=== PATIENT | female | born 1995 | race Caucasian/White ===

== ENCOUNTER 2016-10-06 15:35 | Emergency (ER) | payer BC ==
--- NOTE | 2016-10-06 17:23 | EDM.PDOCBH ---
ED HPI GENERAL MEDICAL PROBLEM - General Chief Complaint: Behavioral/Psych Stated Complaint: EVAL Time Seen by Provider: 10/06/16 17:16 Source of Information: Reports: Patient, Family (MOm) History Limitations: Reports: No Limitations - History of Present Illness INITIAL COMMENTS - FREE TEXT/NARRATIVE: Pt presents to ER with her mother after expressing suicidal ideation on Thursday night after going to a green party and drinking. Stopped her Lexapro about 3 weeks ago as she didn't think she should drink with it and the green party season is back in full swing on campus. She had been started on it about 10 months ago after a breakup with her boyfriend. Had been going to counseling weekly as well. Stopped counseling about 5 months ago. She admits that her relationship with her boyfriend is a trigger as they have been off again, on again for about 2 years. Mom confirms this. She admits to having behavior problems when drinking alcohol. Denies drug use. Feels like she has struggled with depression since about 14. Admits to cutting self x 1 at age 14. Her plan on Thursday was to slit her wrists and take some pills "to just go to sleep". She is quite emotional and tearful during my interview but able to communicate openly. Has concerns about her job and starting college tomorrow. "I don't feel like I could focus". Saw a counselor today after her mom drove to get her from college at 3am. Remained despondent today so Mom brought her in for an evaluation. She still voices thoughts of suicide today. Same plan. Onset Date: 10/01/16 Duration: Getting Worse Improves with: Reports: None Worsens with: Reports: None Context: Reports: Other Associated Symptoms: Reports: No Other Symptoms - Related Data Allergies Allergy/AdvReac Type Severity Reaction Status Date / Time No Known Allergies Allergy Verified 12/08/15 18:39 Home Meds: Home Meds NK [No Known Home Meds] 10/06/16 [History] Past Medical History Psychiatric History: Reports: Anxiety, Depression - Past Surgical History HEENT Surgical History: Reports: Oral Surgery Social & Family History - Tobacco Use Smoking Status *Q: Unknown Ever Smoked - Alcohol Use Days Per Week of Alcohol Use: 2 Number of Drinks Per Day: 2 Total Drinks Per Week: 4 - Recreational Drug Use Recreational Drug Use: No ED ROS GENERAL - Review of Systems Review Of Systems: See Below Constitutional: Reports: No Symptoms HEENT: Reports: No Symptoms Respiratory: Reports: No Symptoms Cardiovascular: Reports: No Symptoms Endocrine: Reports: No Symptoms GI/Abdominal: Reports: No Symptoms : Reports: No Symptoms Musculoskeletal: Reports: No Symptoms Skin: Reports: No Symptoms Neurological: Reports: No Symptoms Psychiatric: Reports: Depression, Mood Lability, Suicidal Ideation Hematologic/Lymphatic: Reports: No Symptoms Immunologic: Reports: No Symptoms ED EXAM, BEHAVIORAL HEALTH - Physical Exam Exam: See Below General Appearance: Alert, WD/WN, No Apparent Distress Respiratory/Chest: No Respiratory Distress, Lungs Clear, Normal Breath Sounds, No Accessory Muscle Use, Chest Non-Tender Cardiovascular: Normal Peripheral Pulses, Regular Rate, Rhythm, No Edema, No Gallop, No JVD, No Murmur, No Rub Psychiatric: Alert, Oriented, Tearful, Suicidal Plan, Suicidal Thoughts, Other ( Mom present during the interview. Pt open and communicative. Tearful and quite emotional.) COURSE, BEHAVIORAL HEALTH COMP - Course Vital Signs: Last Vital Signs Temp 97.9 F 10/06/16 16:32 Pulse 73 10/06/16 16:32 Resp 16 10/06/16 16:32 BP 134/76 10/06/16 16:32 Pulse Ox 96 10/06/16 16:32 Orders, Labs, Meds: Laboratory Tests 10/06/16 10/06/16 10/06/16 Range/Units 17:30 17:30 17:30 WBC 6.3 (4.5-11.0) K/uL RBC 4.75 (3.30-5.50) M/uL Hgb 13.5 (12.0-15.0) g/dL Hct 39.6 (36.0-48.0) % MCV 83 (80-98) fL MCH 28 (27-31) pg MCHC 34 (32-36) % Plt Count 275 (150-400) K/uL Neut % (Auto) 52 (36-66) % Lymph % (Auto) 36 (24-44) % [place] % (Auto) 10 H (2-6) % Eos % (Auto) 1 L (2-4) % Baso % (Auto) 1 (0-1) % Sodium 138 L (140-148) mmol/L Potassium 3.8 (3.6-5.2) mmol/L Chloride 103 (100-108) mmol/L Carbon Dioxide 26 (21-32) mmol/L Anion Gap 12.8 (5.0-14.0) mmol/L BUN 10 (7-18) mg/dL Creatinine 0.7 (0.6-1.0) mg/dL Est Cr Clr Drug Dosing 115.36 mL/min Estimated GFR (MDRD) > 60 (>60) Glucose 84 (74-106) mg/dL Calcium 9.1 (8.5-10.1) mg/dL Total Bilirubin 0.3 (0.2-1.0) mg/dL AST 21 (15-37) U/L ALT 23 (12-78) U/L Alkaline Phosphatase 73 (46-116) U/L Total Protein 8.0 (6.4-8.2) g/dL Albumin 3.9 (3.4-5.0) g/dL Globulin 4.1 H (2.3-3.5) g/dL Albumin/Globulin Ratio 1.0 L (1.2-2.2) TSH, Ultra Sensitive 0.539 (0.358-3.740) uIU/mL Urine Color Urine Appearance Urine pH (4.5-8.0) Ur Specific [place] (1.008-1.030) Urine Protein (NEGATIVE) mg/dL Urine Glucose (UA) (NEGATIVE) mg/dL Urine Ketones (NEGATIVE) mg/dL Urine Occult Blood (NEGATIVE) Urine Nitrite (NEGATIVE) Urine Bilirubin (NEGATIVE) Urine Urobilinogen (NORMAL) mg/dL Ur Leukocyte Esterase (NEGATIVE) Urine RBC (0-5) Urine WBC (0-5) Ur Epithelial Cells Amorphous Sediment Urine Bacteria Urine Mucus Urine HCG, Qual Salicylates 0.9 L (2.0-20.0) mg/dL Urine Opiates Screen (NEGATIVE) Ur Oxycodone Screen (NEGATIVE) Urine Methadone Screen (NEGATIVE) Ur Propoxyphene Screen (NEGATIVE) Acetaminophen 0.0 L (10.0-30.0) ug/mL Ur Barbiturates Screen (NEGATIVE) Ur Tricyclics Screen (NEGATIVE) Ur Phencyclidine Scrn (NEGATIVE) Ur Amphetamine Screen (NEGATIVE) U Methamphetamines Scrn (NEGATIVE) Urine MDMA Screen (NEGATIVE) U Benzodiazepines Scrn (NEGATIVE) U Cocaine Metab Screen (NEGATIVE) U Marijuana (THC) Screen (NEGATIVE) 10/06/16 10/06/16 10/06/16 Range/Units 17:32 17:32 18:31 WBC (4.5-11.0) K/uL RBC (3.30-5.50) M/uL Hgb (12.0-15.0) g/dL Hct (36.0-48.0) % MCV (80-98) fL MCH (27-31) pg MCHC (32-36) % Plt Count (150-400) K/uL Neut % (Auto) (36-66) % Lymph % (Auto) (24-44) % [place] % (Auto) (2-6) % Eos % (Auto) (2-4) % Baso % (Auto) (0-1) % Sodium (140-148) mmol/L Potassium (3.6-5.2) mmol/L Chloride (100-108) mmol/L Carbon Dioxide (21-32) mmol/L Anion Gap (5.0-14.0) mmol/L BUN (7-18) mg/dL Creatinine (0.6-1.0) mg/dL Est Cr Clr Drug Dosing mL/min Estimated GFR (MDRD) (>60) Glucose (74-106) mg/dL Calcium (8.5-10.1) mg/dL Total Bilirubin (0.2-1.0) mg/dL AST (15-37) U/L ALT (12-78) U/L Alkaline Phosphatase (46-116) U/L Total Protein (6.4-8.2) g/dL Albumin (3.4-5.0) g/dL Globulin (2.3-3.5) g/dL Albumin/Globulin Ratio (1.2-2.2) TSH, Ultra Sensitive (0.358-3.740) uIU/mL Urine Color Red Urine Appearance Cloudy Urine pH 6.0 (4.5-8.0) Ur Specific [place] 1.015 (1.008-1.030) Urine Protein Negative (NEGATIVE) mg/dL Urine Glucose (UA) Normal (NEGATIVE) mg/dL Urine Ketones Negative (NEGATIVE) mg/dL Urine Occult Blood Large (NEGATIVE) Urine Nitrite Negative (NEGATIVE) Urine Bilirubin Negative (NEGATIVE) Urine Urobilinogen Normal (NORMAL) mg/dL Ur Leukocyte Esterase Negative (NEGATIVE) Urine RBC Packed H (0-5) Urine WBC 0-5 (0-5) Ur Epithelial Cells Few Amorphous Sediment Few Urine Bacteria Rare Urine Mucus Few Urine HCG, Qual Negative Salicylates (2.0-20.0) mg/dL Urine Opiates Screen Negative (NEGATIVE) Ur Oxycodone Screen Negative (NEGATIVE) Urine Methadone Screen Negative (NEGATIVE) Ur Propoxyphene Screen Negative (NEGATIVE) Acetaminophen (10.0-30.0) ug/mL Ur Barbiturates Screen Negative (NEGATIVE) Ur Tricyclics Screen Negative (NEGATIVE) Ur Phencyclidine Scrn Negative (NEGATIVE) Ur Amphetamine Screen Negative (NEGATIVE) U Methamphetamines Scrn Negative (NEGATIVE) Urine MDMA Screen Negative (NEGATIVE) U Benzodiazepines Scrn Negative (NEGATIVE) U Cocaine Metab Screen Negative (NEGATIVE) U Marijuana (THC) Screen Negative (NEGATIVE) Departure - Departure Time of Disposition: 21:20 Disposition: Home, Self-Care 01 Condition: Good Clinical Impression: Depressive disorder - Discharge Information Referrals: Farhana Burgos GAUGE INSPECTOR [Primary Care Provider] - Forms: ED Department Discharge Additional Instructions: Crisis intervention consulted. Pt and Mom in agreement with plan. Pt eats supper while waiting without difficulty. Appetite good. Does currently have menses. Pt arranges for self-harm contract with floor worker. Will resume Lexapro 10mg po daily. Stressed med compliance and not stopping it suddenly. RX for Lorazepam 0.5mg 1/2-1 tab daily as needed for anxiety. Discussed risk vs benefit of this med as well. Pt to resume counseling. Limit alcohol intake. Followup if desire to harm self or others. - Problem List & Annotations (1) Depressive disorder SNOMED Code(s): 65450068 Code(s): F32.9 - MAJOR DEPRESSIVE DISORDER, SINGLE EPISODE, UNSPECIFIED Status: Acute Priority: Medium Current Visit: Yes
[2016-10-06 21:35] VITALS: BP 126/71
== END 2016-10-06 22:08 | disposition home or self-care (01) ==
LOC: JP.ED 15:35
DX: F32.9 Major depressive disorder, single episode, unspecified (principal); F41.9 Anxiety disorder, unspecified; Z98.890 Other specified postprocedural states
CPT/HCPCS: 36415; 80053; 80305; 81001; 81025; 84443; 85025; 99285; G0480

== ENCOUNTER 2020-12-09 19:11 | Emergency (ER) | payer BC, OTHER ==
[2020-12-09 19:57] VITALS: BP 125/84; PULSE 84
[2020-12-09] MEDS ORDERED: Ondansetron 4 MG/2 ML SDV IVPUSH ONE (20:04)
[2020-12-09] MEDS ORDERED: Sodium Chloride 0.9% 10 ML Syringe FLUSH PRN (20:06)
[2020-12-09] MEDS ORDERED: Famotidine 20 MG/2 ML SDV IVPUSH ONE (20:06)
[2020-12-09] MEDS ORDERED: Lactated Ringers 1,000 ML IV SCH (20:15)
[2020-12-09] MEDS ORDERED: Sodium Chloride 0.9% 1,000 ML IV SCH (20:15)
--- NOTE | 2020-12-09 20:17 | EDM.PDOC ---
ED HPI GENERAL MEDICAL PROBLEM - General Chief Complaint: Gastrointestinal Problem Stated Complaint: 8 1/2 WKS -NAUSEA VOMITING Time Seen by Provider: 12/09/20 19:50 Source of Information: Reports: Patient, Family, RN Notes Reviewed History Limitations: Reports: No Limitations - History of Present Illness INITIAL COMMENTS - FREE TEXT/NARRATIVE: Josi presents today for complaints of emesis while , difficulty keeping anything down. She has tried use of mindi, mint, gum, lemon drops, crackers, trying to sip fluids, use of pudding, yogurt. She has had to have IV fluids at the infusion center for her hyperemesis. She is taking B6 and unisom for her vomiting. She denies fever, chills, abdominal pain, cramping, diarrhea, constipation, body aches or other concerns. - Related Data Allergies Allergy/AdvReac Type Severity Reaction Status Date / Time No Known Allergies Allergy Verified 12/09/20 19:31 Home Meds: Home Meds Albuterol [Ventolin 2 MG/5 ML] 2 puff INH ASDIRECTED PRN 12/09/20 [History] B6/Mefolate/Mecobal/Acetylcyst [Eb-C3 Dr 6-2-600-1.7 mg Cap] 1 cap PO ASDIRECTED 12/09/20 [History] Doxylamine Succinate [[place]] 12.5 mg PO ASDIRECTED 12/09/20 [History] 148/Iron/Folate 6/Dha [Tendera-Ob Softgel] 1 tab PO DAILY 12/09/20 [History] Past Medical History Respiratory History: Reports: Other (See Below) Other Respiratory History: exerise induces asthma RECORDS ASSISTANT History: Reports: Other RECORDS ASSISTANT History: estimated 07/17/21 Psychiatric History: Reports: Anxiety Dermatologic History: Reports: Eczema - Infectious Disease History Infectious Disease History: Reports: Chicken Pox - Past Surgical History HEENT Surgical History: Reports: Oral Surgery Social & Family History - Tobacco Use Tobacco Use Status *Q: Never Tobacco User - Caffeine Use Caffeine Use: Reports: None Caffeine Use Comment: none for the last 5 weeks - Recreational Drug Use Recreational Drug Use: No ED ROS GENERAL - Review of Systems Review Of Systems: See Below Constitutional: Reports: Other () HEENT: Reports: No Symptoms Respiratory: Reports: No Symptoms Cardiovascular: Reports: No Symptoms Endocrine: Reports: No Symptoms GI/Abdominal: Reports: Nausea, Vomiting : Reports: No Symptoms Musculoskeletal: Reports: No Symptoms Skin: Reports: No Symptoms Neurological: Reports: No Symptoms Psychiatric: Reports: No Symptoms Hematologic/Lymphatic: Reports: No Symptoms Immunologic: Reports: No Symptoms ED EXAM, GI/ABD - Physical Exam Exam: See Below Exam Limited By: No Limitations General Appearance: Alert, WD/WN, Mild Distress Head: Atraumatic, Normocephalic Neck: Normal Inspection, Supple, Non-Tender, Full Range of Motion. No: Lymphadenopathy (R), Lymphadenopathy (L) Respiratory/Chest: No Respiratory Distress, Lungs Clear, Normal Breath Sounds, No Accessory Muscle Use, Chest Non-Tender. No: Crackles, Rales, Rhonchi, Wheezing, Stridor Cardiovascular: Normal Peripheral Pulses, Regular Rate, Rhythm, No Edema, No Gallop, No Murmur, No Rub GI/Abdominal Exam: Normal Bowel Sounds, Soft, Non-Tender, No Organomegaly, No Distention, No Mass, Pelvis Stable. No: Guarding, Rigid, Rebound, Tender Back Exam: Normal Inspection, Full Range of Motion. No: CVA Tenderness (R), CVA Tenderness (L) Extremities: Normal Inspection, Normal Range of Motion, Non-Tender, No Pedal Edema, Normal Capillary Refill Neurological: Alert, Oriented, CN II-XII Intact, Normal Cognition, Normal Gait, No Motor/Sensory Deficits Psychiatric: Normal Affect, Tearful Skin Exam: Warm, Dry, Intact, Normal Color, No Rash Lymphatic: No Adenopathy Course - Vital Signs Last Recorded V/S: Last Vital Signs Temp 35.7 C L 12/09/20 19:30 Pulse 84 12/09/20 19:30 Resp 16 12/09/20 19:30 BP 125/84 12/09/20 19:30 Pulse Ox 99 12/09/20 19:30 - Orders/Labs/Meds Orders: Active Orders 24 hr Category Date Time Status UA W/MICROSCOPIC [URIN] Stat Lab 12/09/20 20:18 Ordered Lactated Ringers [Ringers, Lactated] 1,000 ml Med 12/09/20 20:15 Active IV ASDIRECTED Sodium Chloride 0.9% [Normal Saline] 1,000 ml Med 12/09/20 20:15 Active IV ASDIRECTED Sodium Chloride 0.9% [Saline Flush] Med 12/09/20 20:06 Active 10 ml FLUSH ASDIRECTED PRN Saline Lock Insert [OM.PC] Routine Oth 12/09/20 20:06 Ordered Medication Orders Sodium Chloride (Normal Saline) 1,000 mls @ 1,000 mls/hr IV ASDIRECTED FRANCY Last Admin: 12/09/20 20:15 Dose: 1,000 mls/hr Documented by: BRYCE Lactated Ringer's (Ringers, Lactated) 1,000 mls @ 1,000 mls/hr IV ASDIRECTED FRANCY Last Admin: 12/09/20 20:20 Dose: 1,000 mls/hr Documented by: BRYCE Sodium Chloride (Sodium Chloride 0.9% 10 Ml Syringe) 10 ml FLUSH ASDIRECTED PRN PRN Reason: Keep Vein Open Last Admin: 12/09/20 20:26 Dose: 10 ml Documented by: BRYCE Meds: Medications Generic Name Dose Route Start Last Admin Trade Name Freq PRN Reason Stop Dose Admin Sodium Chloride 1,000 mls @ 1,000 mls/hr 12/09/20 20:15 12/09/20 20:15 Normal Saline IV 1,000 mls/hr ASDIRECTED FRANCY Administration Lactated Ringer's 1,000 mls @ 1,000 mls/hr 12/09/20 20:15 12/09/20 20:20 Ringers, Lactated IV 1,000 mls/hr ASDIRECTED FRANCY Administration Sodium Chloride 10 ml 12/09/20 20:06 12/09/20 20:26 Sodium Chloride 0.9% 10 Ml Syringe FLUSH 10 ml ASDIRECTED PRN Administration Keep Vein Open Discontinued Medications Generic Name Dose Route Start Last Admin Trade Name Freq PRN Reason Stop Dose Admin Famotidine 20 mg 12/09/20 20:06 12/09/20 20:20 Famotidine 20 Mg/2 Ml Sdv IVPUSH 12/09/20 20:07 20 mg ONETIME ONE Administration Ondansetron HCl 4 mg 12/09/20 20:04 12/09/20 20:24 Ondansetron 4 Mg/2 Ml Sdv IVPUSH 12/09/20 20:05 4 mg ONETIME ONE Administration Discussed use of ondasetron versus metoclopramide and possible teratogenic effects of ondansetron. Patient requests to try ondansetron as this has worked for her in the infusion center. - Re-Assessments/Exams Free Text/Narrative Re-Assessment/Exam: 12/09/20 21:08 Josi doing well, nausea has subsided. No emesis at this time. IV fluids infusing well. 12/09/20 21:39 Josi doing well. She will be discharged to home, monitor urine output. Work on oral intake. Follow up with OB as scheduled. All her and her husbands questions were answered, they are in agreement with plan. Departure - Departure Time of Disposition: 21:39 Disposition: Home, Self-Care 01 Condition: Good Clinical Impression: Hyperemesis arising during - Discharge Information *PRESCRIPTION DRUG MONITORING PROGRAM REVIEWED*: Not Applicable *COPY OF PRESCRIPTION DRUG MONITORING REPORT IN PATIENT LONNIE: Not Applicable Instructions: Hyperemesis Gravidarum Referrals: PCP,None [Primary Care Provider] - Forms: ED Department Discharge Additional Instructions: You have been evaluated and treated for hyperemesis. Continue vitamin B6 and unisom three times a day as directed. Take ondansetron 4mg one tablet every 8 hours as needed for nausea. You can take pepcid (famotidine) 20mg tablet twice a day as needed for acid reflux (take now for 3 to 5 days to help decrease acid and maybe help with nausea. After the next 3 to 5 days take as you need to). You can take tums as needed. Continue to do your interventions as you have. Take ondansetron (zofran) prior to bed, wait 30 minutes then eat a snack and take your vitamin with B6 and unisom. Sip water, gatorade. If you cannot keep your unisom down then you can try benadryl (diphenhydramine) 25mg to 50mg as needed to help with rest/nausea. In the morning, take ondansetron prior to getting out of bed, wait 30 minutes then drink sips of fluid and eat a small snack with increased food and fluid intake as you tolerate. Sometimes sprite or 7-up mixed with gatorade tastes good and will stay down. Try cold versus room temperature fluids to see if this helps. Get plenty of fresh air - this helps calm nausea and is good for you. Stay positive! You've got this! Keep current OB appointment and follow up. Return as needed and if not able to keep fluids down. Call OB tomorrow and let them know how you are doing. Sepsis Event Note (ED) - Evaluation Sepsis Screening Result: No Definite Risk - Focused Exam Vital Signs: Vital Signs Temp Pulse Resp BP Pulse Ox 12/09/20 19:30 35.7 C L 84 16 125/84 99 - My Orders Last 24 Hours: My Active Orders 12/09/20 20:06 Sodium Chloride 0.9% [Saline Flush] 10 ml FLUSH ASDIRECTED PRN Saline Lock Insert [OM.PC] Routine 12/09/20 20:15 Lactated Ringers [Ringers, Lactated] 1,000 ml IV ASDIRECTED Sodium Chloride 0.9% [Normal Saline] 1,000 ml IV ASDIRECTED 12/09/20 20:18 UA W/MICROSCOPIC [URIN] Stat - Assessment/Plan Last 24 Hours: My Active Orders 12/09/20 20:06 Sodium Chloride 0.9% [Saline Flush] 10 ml FLUSH ASDIRECTED PRN Saline Lock Insert [OM.PC] Routine 12/09/20 20:15 Lactated Ringers [Ringers, Lactated] 1,000 ml IV ASDIRECTED Sodium Chloride 0.9% [Normal Saline] 1,000 ml IV ASDIRECTED 12/09/20 20:18 UA W/MICROSCOPIC [URIN] Stat Assessment:: Hyperemesis Gravidarum Plan: Patient evaluated and treated for hyperemesis. Continue vitamin B6 and unisom three times a day as directed. Take ondansetron 4mg one tablet every 8 hours as needed for nausea. Take pepcid (famotidine) 20mg tablet twice a day as needed for acid reflux (take now for 3 to 5 days to help decrease acid and maybe help with nausea. After the next 3 to 5 days take as you need to). Take tums as needed. Continue to do interventions as she has. Take ondansetron (zofran) prior to bed, wait 30 minutes then eat a snack and take vitamin with B6 and unisom. Sip water, gatorade. If unable to keep unisom down then try benadryl (diphenhydramine) 25mg to 50mg as needed to help with rest/nausea. In the morning, take ondansetron prior to getting out of bed, wait 30 minutes then drink sips of fluid and eat a small snack with increased food and fluid intake as tolerated. Sometimes sprite or 7-up mixed with gatorade tastes good and will stay down. Try cold versus room temperature fluids to see if this helps. Get plenty of fresh air. Keep current OB appointment and follow up. Return as needed and if not able to keep fluids down. Call OB tomorrow and update them.
== END 2020-12-09 21:52 | disposition home or self-care (01) ==
LOC: JP.ED 19:11
DX: O21.0 Mild hyperemesis gravidarum (principal); Z3A.08 8 weeks gestation of pregnancy
CPT/HCPCS: 96361; 96374; 96375; 99284; J2405; J3490; J7030; J7120

== ENCOUNTER 2021-01-13 13:09 | Emergency (ER) | payer OTHER ==
[2021-01-13 14:01] VITALS: BP 124/75; PULSE 92
[2021-01-13] MEDS ORDERED: Lactated Ringers 1,000 ML IV ONE (14:17)
[2021-01-13] MEDS ORDERED: Sodium Chloride 0.9% 10 ML Syringe FLUSH PRN (14:17)
[2021-01-13] MEDS ORDERED: Ondansetron 4 MG/2 ML SDV IVPUSH ONE (14:21)
--- NOTE | 2021-01-13 15:04 | EDM.PDOC ---
ED HPI GENERAL MEDICAL PROBLEM - General Chief Complaint: Gastrointestinal Problem Stated Complaint: SEVERE VOMITING 13 WKS Time Seen by Provider: 01/13/21 14:10 Source of Information: Reports: Patient, Family, RN Notes Reviewed History Limitations: Reports: No Limitations - History of Present Illness INITIAL COMMENTS - FREE TEXT/NARRATIVE: Josi presents today for complaints of uncontrolled nausea with her current . She states she was seen 4 days ago, had her lab work completed and was told her labs were good. She tried a promethazine suppository at 0830 without any improvement. Josi denies fever, chills, change in bowel/bladder or other concerns. - Related Data Allergies Allergy/AdvReac Type Severity Reaction Status Date / Time banana bag Allergy Chest Uncoded 01/13/21 14:37 Presssure Home Meds: Home Meds Albuterol [Ventolin 2 MG/5 ML] 2 puff INH ASDIRECTED PRN 12/09/20 [History] 148/Iron/Folate 6/Dha [Tendera-Ob Softgel] 1 tab PO DAILY 12/09/20 [History] Past Medical History Respiratory History: Reports: Other (See Below) Other Respiratory History: exerise induces asthma [employer] History: Reports: Other [employer] History: estimated 07/17/21 Psychiatric History: Reports: Anxiety Dermatologic History: Reports: Eczema - Infectious Disease History Infectious Disease History: Reports: Chicken Pox - Past Surgical History HEENT Surgical History: Reports: Oral Surgery Social & Family History - Tobacco Use Tobacco Use Status *Q: Never Tobacco User - Caffeine Use Caffeine Use: Reports: None Caffeine Use Comment: none for the last 5 weeks - Recreational Drug Use Recreational Drug Use: No ED ROS GENERAL - Review of Systems Review Of Systems: See Below Constitutional: Reports: No Symptoms HEENT: Reports: No Symptoms Respiratory: Reports: No Symptoms Cardiovascular: Reports: No Symptoms Endocrine: Reports: No Symptoms GI/Abdominal: Reports: Nausea, Vomiting : Reports: No Symptoms Musculoskeletal: Reports: No Symptoms Skin: Reports: No Symptoms Neurological: Reports: No Symptoms Psychiatric: Reports: No Symptoms Hematologic/Lymphatic: Reports: No Symptoms Immunologic: Reports: No Symptoms ED EXAM, GI/ABD - Physical Exam Exam: See Below Exam Limited By: No Limitations General Appearance: Alert, WD/WN, Mild Distress Eyes: Bilateral: Normal Appearance Ears: Normal External Exam, Normal Canal, Hearing Grossly Normal, Normal TMs Nose: Normal Inspection, Normal Mucosa, No Blood Throat/Mouth: Normal Inspection, Normal Lips, Normal Teeth, Normal Gums, Normal Oropharynx, Normal Voice, No Airway Compromise, Other (dry mucus membranes) Head: Atraumatic, Normocephalic Neck: Normal Inspection, Supple, Non-Tender, Full Range of Motion. No: Lymphadenopathy (R), Lymphadenopathy (L) Respiratory/Chest: No Respiratory Distress, Lungs Clear, Normal Breath Sounds, No Accessory Muscle Use, Chest Non-Tender. No: Crackles, Rales, Rhonchi, Wheezing, Stridor Cardiovascular: Normal Peripheral Pulses, Regular Rate, Rhythm, No Edema, No Gallop, No Murmur GI/Abdominal Exam: Normal Bowel Sounds, Soft, Non-Tender, No Organomegaly, No Distention. No: Guarding, Rigid, Rebound, Tender Back Exam: Normal Inspection, Full Range of Motion. No: CVA Tenderness (R), CVA Tenderness (L) Extremities: Normal Inspection, Normal Range of Motion, Non-Tender, No Pedal Davon ma, Normal Capillary Refill Neurological: Alert, Oriented, CN II-XII Intact, Normal Cognition, Normal Gait, Normal Reflexes, No Motor/Sensory Deficits Psychiatric: Normal Affect, Normal Mood Skin Exam: Warm, Dry, Intact, Normal Color, No Rash Lymphatic: No Adenopathy Course - Vital Signs Last Recorded V/S: Last Vital Signs Temp 36.6 C 01/13/21 14:00 Pulse 92 01/13/21 14:00 Resp 16 01/13/21 14:00 BP 124/75 01/13/21 14:00 Pulse Ox 98 01/13/21 14:00 - Orders/Labs/Meds Orders: Active Orders 24 hr Category Date Time Status Saline Lock Insert [OM.PC] Routine Oth 01/13/21 14:17 Ordered Meds: Medications Discontinued Medications Generic Name Dose Route Start Last Admin Trade Name Tonioq PRN Reason Stop Dose Admin Lactated Ringer's 1,000 mls @ 1,000 mls/hr 01/13/21 14:17 01/13/21 14:43 Ringers, Lactated IV 01/13/21 15:16 1,000 mls/hr BOLUS ONE Administration Ondansetron HCl 4 mg 01/13/21 14:21 01/13/21 14:46 Ondansetron 4 Mg/2 Ml Sdv IVPUSH 01/13/21 14:22 4 mg ONETIME ONE Administration Sodium Chloride 10 ml 01/13/21 14:17 01/13/21 14:48 Sodium Chloride 0.9% 10 Ml Syringe FLUSH 10 ml ASDIRECTED PRN Administration Keep Vein Open - Re-Assessments/Exams Free Text/Narrative Re-Assessment/Exam: 01/13/21 15:40 Patient reports she is feeling better. No vomiting while in ER. Departure - Departure Time of Disposition: 15:41 Disposition: Home, Self-Care 01 Condition: Good Clinical Impression: Hyperemesis arising during - Discharge Information Instructions: Hyperemesis Gravidarum Referrals: Nichelle Flowers CNM [Primary Care Provider] - Forms: ED Department Discharge Additional Instructions: Continue your current medications as directed. Follow up with your [employer] as scheduled as well as endocrinology. Return as needed. Sepsis Event Note (ED) - Evaluation Sepsis Screening Result: No Definite Risk - Focused Exam Vital Signs: Vital Signs Temp Pulse Resp BP Pulse Ox 01/13/21 14:00 36.6 C 92 16 124/75 98 - My Orders Last 24 Hours: My Active Orders 01/13/21 14:17 Saline Lock Insert [OM.PC] Routine - Assessment/Plan Last 24 Hours: My Active Orders 01/13/21 14:17 Saline Lock Insert [OM.PC] Routine Assessment:: Hyperemesis arising during Plan: Continue your current medications as directed. Follow up with your [employer] as scheduled as well as endocrinology. Return as needed.
== END 2021-01-13 16:03 | disposition home or self-care (01) ==
LOC: JP.ED 13:09
DX: O21.9 Vomiting of pregnancy, unspecified (principal); Z88.8 Allergy status to other drugs, medicaments and biological substances; Z3A.13 13 weeks gestation of pregnancy
CPT/HCPCS: 96374; 99283; J2405; J7120

== ENCOUNTER 2021-08-03 04:24 | Emergency (ER) | payer OTHER ==
[2021-08-03 05:10] VITALS: BP 139/94; PULSE 76
== END 2021-08-03 06:12 | disposition home or self-care (01) ==
LOC: JP.ED 04:24
DX: H81.11 Benign paroxysmal vertigo, right ear (principal); Z88.8 Allergy status to other drugs, medicaments and biological substances
CPT/HCPCS: 99281; 99283

== ENCOUNTER 2021-08-17 20:04 | Emergency (ER) | payer OTHER ==
[2021-08-17] MEDS ORDERED: Sodium Chloride 0.9% 10 ML Syringe FLUSH PRN (20:10)
[2021-08-17] MEDS ORDERED: LORazepam 2 MG/ML SDV IVPUSH ONE (20:11)
[2021-08-17 20:13] VITALS: BP 155/87; PULSE 120
[2021-08-17] MEDS ORDERED: Ketorolac 30 MG/ML SDV IVPUSH ONE (22:26)
[2021-08-17 23:00] LABS: ESTIMATED GFR 91 mL/min (>60)
== END 2021-08-17 23:29 | disposition home or self-care (01) ==
LOC: JP.ED 20:04
DX: F41.9 Anxiety disorder, unspecified (principal); R06.4 Hyperventilation; R74.8 Abnormal levels of other serum enzymes; Z91.018 Allergy to other foods
CPT/HCPCS: 36415; 71045; 80053; 81001; 85025; 96374; 96375; 99285; J1885; J2060; J3490

== ENCOUNTER 2023-02-22 05:31 | Emergency (ER) | payer OTHER ==
[2023-02-22 05:50] VITALS: BP 122/81; PULSE 118
[2023-02-22] MEDS ORDERED: Sodium Chloride 0.9% 10 ML Syringe FLUSH PRN (06:02)
[2023-02-22] MEDS ORDERED: Ondansetron 4 MG/2 ML SDV IVPUSH ONE (06:04)
[2023-02-22 06:08] LABS: BASOPHILS ABSOLUTE AUTO 0.03 K/uL (0.00-0.10); BASOPHILS PERCENT AUTO 0.2 % (0.1-1.3); HEMATOCRIT 43.3 % (34.3-46.0); HEMOGLOBIN 14.7 g/dL (11.2-15.5); IMMATURE GRAN ABSOLUTE AUTO 0.05 K/uL (0.00-0.23); IMMATURE GRAN PERCENT AUTO 0.4 % (0.0-0.7); LYMPHOCYTES ABSOLUTE AUTO 0.37 K/uL (0.8-3.3); LYMPHOCYTES PERCENT AUTO 2.9 % (11.4-47.7); MEAN CORPUSCULAR HEMOGLOBIN 27.8 pg (31.6-35.5); MEAN CORPUSCULAR HGB CONC 33.9 g/dL (31.6-35.5); MONOCYTES ABSOLUTE AUTO 0.53 K/uL (0.20-0.90); MONOCYTES PERCENT AUTO 4.1 % (3.3-12.6); NEUTROPHILS PERCENT AUTO 92.4 % (40.0-78.1); PLATELET COUNT,PLT 250 K/uL (130-375); RED BLOOD CELL COUNT 5.28 M/uL (3.77-5.24); WHITE BLOOD CELL COUNT,WBC 12.8 K/uL (3.2-11.0)
[2023-02-22] MEDS ORDERED: Lactated Ringers 1,000 ML IV SCH (06:15)
[2023-02-22 06:21] LABS: CALCIUM 8.9 mg/dL (8.5-10.1); CREATININE 0.9 mg/dL (0.6-1.0); EST CRCL DRUG DOSING (CG) 84.49 mL/min; POTASSIUM,K 4.2 mmol/L (3.6-5.2)
[2023-02-22 06:22] LABS: ANION GAP 14.2 mmol/L (5.0-14.0)
[2023-02-22 07:08] LABS: CORONAVIRUS COVID-19 NAA NEGATIVE (NEGATIVE); INFLUENZA A NAA NEGATIVE (NEGATIVE); INFLUENZA B NAA NEGATIVE (NEGATIVE); RESPIRATORY SYNCYTIAL VIR NAA NEGATIVE (NEGATIVE)
[2023-02-22] MEDS ORDERED: Sodium Chloride 0.9% 1,000 ML IV SCH (07:45)
== END 2023-02-22 08:48 | disposition home or self-care (01) ==
LOC: JP.ED 05:31
DX: E86.0 Dehydration (principal); J11.1 Influenza due to unidentified influenza virus with other respiratory manifestations; Z20.822 Contact with and (suspected) exposure to COVID-19; Z88.8 Allergy status to other drugs, medicaments and biological substances
CPT/HCPCS: 0241U; 36415; 80048; 83605; 84703; 85025; 96361; 96374; 99284; J2405; J3490; J7030; J7120

== ENCOUNTER 2023-06-04 14:17 | Emergency (ER) | payer OTHER ==
[2023-06-04 14:26] VITALS: BP 127/74; PULSE 109
[2023-06-04] MEDS: Ondansetron 4 MG/2 ML SDV IVPUSH ONE (15:36)
[2023-06-04] MEDS: Sodium Chloride 0.9% 10 ML Syringe FLUSH PRN (15:36)
[2023-06-04] MEDS: Lactated Ringers 1,000 ML IV ONE (15:36)
== END 2023-06-04 17:01 | disposition home or self-care (01) ==
LOC: JP.ED 14:17
DX: O21.0 Mild hyperemesis gravidarum (principal); Z3A.09 9 weeks gestation of pregnancy; Z86.19 Personal history of other infectious and parasitic diseases; Z91.018 Allergy to other foods
CPT/HCPCS: 96361; 96374; 99283; J2405; J3490; J7120